=== PATIENT | female | born 1985 | race Caucasian/White ===

== ENCOUNTER 2016-05-05 06:55 | Day surgery (SDC) | payer OTHER ==
[~2016-05-05 06:55] MED LIST: ADDERALL5 MG PO; BCP PO
--- NOTE | 2016-05-05 08:01 | NUR ---
PREOP INSTRUCTIONS GIVEN TO PATIENT AND HER . QUESITONS ANSWERED. PATIENT VERBALIZES UNDERSTANDING. CONSENT CONFIRMED. NO PREOP MEDICATIONS GIVEN. PATIENT RESTING COMFORTABLY. FAMILY IN THE ROOM. SHANNA
--- NOTE | 2016-05-05 11:35 | NUR ---
TRANSTERRED TO PACU, MONITORS PLACED, EASILY AWAKENS, DENIES SURGICAL SITE DISCOMFORT, REPORTED FEELIN SOME NAUSEA, MEDICATED PER ANESTHIA RECORD HEAD OF ABDIRIZAK ELEVATED 20 DEGREES, ON RA, 100% sao2
[2016-05-05] MEDS ORDERED: NORCO1 TA1 PO (11:42)
[2016-05-05] MEDS ORDERED: METAMUCIL48.57 % PO (11:43)
[2016-05-05] MEDS ORDERED: DOCUSATE SODIU250 MG PO (11:44)
--- NOTE | 2016-05-05 11:44 | Provider's Discharge Care Plan ---
Problem, Goal, Plan Problem List 1. Anal fissure
--- NOTE | 2016-05-05 11:44 | Provider's Discharge Care Plan ---
Problem, Goal, Plan Problem List 1. Anal fissure
--- NOTE | 2016-05-05 11:57 | NUR ---
awake alert and talking to Dr. Silverio re findings.
--- NOTE | 2016-05-05 12:25 | NUR ---
PATIENT RETURNED TO THE FLOOR AWAKE AND TALKING. VSS. STATES NAUSEA IS BETTER. STATES MINOR PAIN, CRAMPING GONE. PO OFFERED. KB
--- NOTE | 2016-05-05 12:38 | NUR ---
PATIENT NOW RATING PAIN 10/10. TEARFUL. VICODIN X 2 PO GIVEN. KB
--- NOTE | 2016-05-05 12:45 | OPERATIVE REPORT ---
DATE OF SURGERY: 05/05/2016 SURGEON: Billy Silverio MD PREOPERATIVE DIAGNOSIS: 1. Anal pain and bleeding POSTOPERATIVE DIAGNOSIS: 1. Anal fissure PROCEDURE PERFORMED: 1. Lateral internal sphincterotomy ANESTHESIA: General. INDICATIONS: The patient is a 30-year-old woman with previous hemorrhoids treated with a stapled procedure in 2007. She has noted pain and bleeding in the posterior portion of her anus and exam in the office was inadequate due to discomfort. SURGICAL TECHNIQUE: The patient was taken to the operating room, where a general anesthetic was administered and the patient was placed in prone jackknife position with buttock tapes. A sterile prep and drape was done. The anus was examined under anesthesia after administering an inferior hemorrhoidal block using 1% Xylocaine with epinephrine resulting in good anal dilation. In the posterior midline, there was a friable area of mucosa that split very easily and bled. 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 Careful inspection of the anal canal did not reveal any particularly traumatized or generous areas of hemorrhoidal prolapse. There was a suture embedded in the wall of the bowel actually quite high up in the rectal canal about 4-5 cm from the anal verge. There were no obvious signs of carlos or a true PPH looking area. This had more the appearance of an old black suture, but could be left from suturing a staple line if there was bleeding at the time of the PPH, though the placement was quite high. Because there were no obvious other indications for excision of hemorrhoid or other tissues, I decided to perform a sphincterotomy to see if this would alleviate the patient's symptoms, which, at this point, appear to be most likely due to recurrent posterior midline anal fissure. The right posterolateral part of the anus was selected and the intersphincteric groove was carefully palpated. A local anesthetic was injected and an Lembert 11 blade was used to partially score the internal sphincter. Digital pressure was used to separate the last few fibers. Pressure was held until hemostasis was complete. No attempt was made to close the incision. Absorbent dressings were placed and the patient left in good condition. Instructions were given for frequent Sitz baths and bulking agents.
[2016-05-05 13:01] VITALS: BP 121/81
[2016-05-05] MEDS ORDERED: ZOFRAN4 MG PO (13:54)
--- NOTE | 2016-05-05 14:06 | NUR ---
ADEQUATE PAIN RELIEF FROM VICODIN. TOLERATING PO WELL. DISCHARGE INSTRUCTIONS GIVEN TO PATIENT AND HER SO. QUESTIONS ANSWERED. PATIENT VERBALIZES UNDERSTANDING. PATIENT WILL STOP BY MD OFFICE FOR NOTE FOR EMPLOYER. PAD AND PANTIES PROVIDED. PT UP INDEPENDENTLY. KB
--- NOTE | 2016-05-05 14:21 | NUR ---
PATIENT DISCHARGED HOME. KB
== END 2016-05-05 14:24 | disposition home or self-care (01) ==
LOC: SDC SRH 06:55 → SCU SRH 06:57 → SDC SRH 09:00 → SDP SRH 09:00 → SDC SRH 14:24
PROVIDERS: Surgery
PROC: 0D8R0ZZ Division of Anal Sphincter, Open Approach (ICD-10-PCS; principal; 2016-05-05 09:00)
DX: K60.1 Chronic anal fissure (principal)
CPT/HCPCS: 29229; 29240; 50004; 60001; 70002; 80102; 93070